=== PATIENT | female | born 1955 | race Two or more races ===

== ENCOUNTER 2020-05-19 09:55 | Inpatient (IN) | payer MEDICAID, MEDICARE ==
[~2020-05-19] VITALS: Ht 160 cm; Wt 78.6 kg
[2020-05-19] MEDS ORDERED: cloNIDine HCL 0.1 MG TAB PO ONE (10:30)
[2020-05-19] MEDS ORDERED: HYDROmorphone HCL 2 MG/ML VL IV ONE (12:45)
[2020-05-19] MEDS ORDERED: METOCLOPRAMIDE HCL 5MG/ml INJ 2ml VIAL IV ONE (12:45)
[2020-05-19] MEDS ORDERED: SODIUM CHLORIDE 0.9% 1,000 ML IV ONE (12:45)
[2020-05-19] MEDS ORDERED: MORPHINE SULF INJ 2 MG/ML SYRINGE 1ML IV PRN (13:30)
[2020-05-19] MEDS ORDERED: hydrALAZINE HCL 20 MG/ML VL IV PRN (13:30)
[2020-05-19] MEDS ORDERED: NITROGLYCERIN 0.4 MG SL TAB SL PRN (13:30)
[2020-05-19] MEDS ORDERED: LORazepam 2MG/ML-1ML VIAL IV ONE (13:30)
[2020-05-19 13:36] LABS: Basophils # (auto) 0 10 ^3/uL (0-0.2); Basophils % (auto) 0.3 % (0.0-2.0); Eosinophils # (auto) 0.1 10 ^3/uL (0-0.8); Eosinophils % (auto) 0.4 % (0.0-7.0); Hematocrit 43.1 % (36.0-46.0); Hemoglobin 14.8 g/dL (12.2-16.2); Lymphocytes # (auto) 1.7 10 ^3/uL (0.4-5.4); Lymphocytes % (auto) 13.3 % (10.0-50.0); Mean Corpuscular Hemoglobin 29.7 pg (28.0-32.0); Mean Corpuscular Hgb Conc. 34.2 g/dL (32.0-36.0); Monocytes # (auto) 0.5 10 ^3/uL (0-1.3); Monocytes % (auto) 4.2 % (0.0-12.0); Neutrophils # (auto) 10.6 10 ^3/uL (1.6-8.6); Neutrophils % (auto) 81.8 % (37.0-80.0); Nucleated Red Blood Cells % 0.1 %; Platelet Count (auto) 315 10^3/uL (140-450); Red Blood Cells 4.96 10^6/uL (4.0-5.20); Red Cell Distribution Width 13.2 % (11.8-14.3)
[2020-05-19 13:55] LABS: INR 1.03 (0.9-1.15); Partial Thromboplastin Time 24.4 sec (23.0-31.2)
[2020-05-19 14:00] LABS: Albumin 3.8 g/dL (3.4-5.0); Magnesium 2.1 mg/dL (1.6-2.6); Potassium 4.3 mmol/L (3.5-5.1)
[2020-05-19 14:03] LABS: BUN/Creatinine Ratio 11.4; Bilirubin, Total 0.5 mg/dL (0.2-1.0); Total Protein 7.5 g/dL (6.4-8.2)
--- NOTE | 2020-05-19 14:45 | NUR ---
Telemetry admit from ER UMAIR HOWARD admitted to Telemetry unit after SBAR received. Patient oriented to Estefany dunn RN, unit, room, bed, and unit policies regarding patient care and visiting hours. Patient now on continuous telemetry monitoring, tele box #71. Patient placed on bedside oxygen and weighed by bed scale. Instructed patient on POC, fall precautions, pressure injury prevention, and to call for assistance as needed. Patient verbalized understanding. Fall precautions in place with place with call light within reach.
--- NOTE | 2020-05-19 16:45 | NUR ---
Family called for an update Patient's daughter called. Password obtained. Update provided.
[2020-05-19] MEDS: MORPHINE SULF INJ 2 MG/ML SYRINGE 1ML IV PRN ×2 (16:50→22:01)
[2020-05-19] MEDS: ONDANSETRON HCL 4 MG/2 ML VIAL IV PRN ×2 (16:50→22:01)
--- NOTE | 2020-05-19 17:02 | NUR ---
Mary specimen collected and walked to lab by staff member per protocol.
[2020-05-19 17:18] VITALS: BP 157/87
--- NOTE | 2020-05-19 18:33 | NUR ---
Closing note Patient resting in bed with even and unlabored respirations on 0.5 LPM NC, no distress noted. Patients left knee is swollen with ecchymosis noted. Left pedal pulse present. Skin color WNL to LLE. Fall precautions in place with call light within reach.
[2020-05-19] MEDS ORDERED: DEXTROSE (50%) 50ML SYRG IV PRN (18:45)
--- NOTE | 2020-05-19 18:50 | NUR ---
Called lab to request COVID in-house swab
--- NOTE | 2020-05-19 19:13 | NUR ---
Care endorsed to JULIO Sanchez.
--- NOTE | 2020-05-19 19:42 | NUR ---
Opening Shift Note Received report and assumed care of patient. Patient is awake and alert. No signs or symptoms of distress noted. Instructed patient on plan of care and to call for assistance as needed. Will continue to monitor.
[2020-05-19 22:00] VITALS: BP 155/93
--- NOTE | 2020-05-19 22:01 | NUR ---
Pain Medication Administration Patient complaining of left knee pain 10/10. Will administer pain medication per MD order. Will reassess pain level and will continue to monitor.
[2020-05-19] MEDS ORDERED: AZITHROMYCIN 250 MG TAB PO ONE (22:15)
--- NOTE | 2020-05-19 22:15 | NUR ---
Paged Hospitalist Paged hospitalist regarding patient complaining of sore throat and losing voice. Received new orders for Rapid Strep test, COVID test, Zithromax 500mg PO ONCE, Zithromax 250mg qd x4 days and Cepastat lozenges q6hr PRN. Orders read back and verified. Made hospitalist aware of current COVID test ordered already, verbalized understanding. Will carry out and will continue to monitor.
--- NOTE | 2020-05-19 22:31 | NUR ---
Pain Level Reassessment Patient's left knee pain level reassessed to be 6/10. Repositioned patient for comfort. Offered patient nonpharmacological interventions, patient denied at this time.
[2020-05-19] MEDS: ACCU-CHEK COMFORT CURVE STRIP VI SCH (22:50)
[2020-05-19] MEDS: InsuLIN REG 1unit/0.01ml Soln (100units/ml) SC SCH (22:51)
[2020-05-19] MEDS ORDERED: THROAT LOZENGES(CEPASTAT) MT ONE (23:17)
[2020-05-19] MEDS: THROAT LOZENGES(CEPASTAT) MT PRN (23:26)
[2020-05-19 23:30] VITALS: BP 141/88
[2020-05-20 05:00] VITALS: BP 156/77
[2020-05-20] MEDS: InsuLIN REG 1unit/0.01ml Soln (100units/ml) SC SCH ×4 (06:34→22:37)
[2020-05-20] MEDS: ACCU-CHEK COMFORT CURVE STRIP VI SCH ×4 (06:35→22:37)
--- NOTE | 2020-05-20 08:00 | NUR ---
Morning note Patient resting in bed with even and unlabored respirations on room air, no distress noted. Instructed patient on POC, fall precautions and to call for assistance as needed. Fall precautions in place with call light within reach.
[2020-05-20] MEDS: ONDANSETRON HCL 4 MG/2 ML VIAL IV PRN ×2 (08:25→12:26)
[2020-05-20] MEDS: BENAZEPRIL HCL 10 MG TAB PO SCH (08:26)
[2020-05-20] MEDS: PANTOPRAZOLE 40 MG TAB PO SCH (08:26)
[2020-05-20] MEDS: MORPHINE SULF INJ 2 MG/ML SYRINGE 1ML IV PRN ×3 (08:26→22:37)
[2020-05-20] MEDS: AZITHROMYCIN 250 MG TAB PO SCH (08:26)
[2020-05-20] MEDS: THROAT LOZENGES(CEPASTAT) MT PRN ×3 (08:38→23:49)
[2020-05-20 09:00] VITALS: BP 163/88
--- NOTE | 2020-05-20 10:13 | NUR ---
Orthopedic Rodrigue Mackenzie was at bedside POC discussed with this RN. Mackenzie to place orders.
--- NOTE | 2020-05-20 12:10 | NUR ---
RE: headache Patient has c/o headache. Notified Dr. Ames. Order received and read back to verify.
[2020-05-20] MEDS: ACETAMINOPHEN 325 MG TAB PO PRN (12:25)
[2020-05-20 13:00] VITALS: BP 120/67
--- NOTE | 2020-05-20 13:55 | NUR ---
MD was at bedside - Dr. Ames This RN was at bedside. Notified MD of patient's status. MD verbalized understanding. Okay to place ice pack on the left knee per MD.
--- NOTE | 2020-05-20 13:57 | NUR ---
Ice pack placed to the left knee per MD order.
[2020-05-20] MEDS: ALPRAZolam 0.25 MG TAB PO PRN (15:39)
--- NOTE | 2020-05-20 15:44 | NUR ---
RE: "panic attack" per patient This RN notified that assistance was needed. Patient sitting at side of bed with RLE dangling. Patient is crying with increase respirations. Patient unable to speak in full complete sentences. Patient stated in broken fragments "I'm having panic attack." Instructed patient on deep breathing and relaxation technique. Patient able to return proper demonstration. Patient medicated with PRN anti-anxiety medication per MD order. Respirations even and unlabored with no distress noted after interaction. Call light within reach.
[2020-05-20 17:00] VITALS: BP 132/77
--- NOTE | 2020-05-20 17:02 | NUR ---
Patient resting in bed with even & unlabored respirations No distress noted. Call light within reach.
--- NOTE | 2020-05-20 17:49 | NUR ---
Consents signed and placed in hard chart per MD order. Patient is A&Ox4.
--- NOTE | 2020-05-20 18:29 | NUR ---
Closing note Patient awake & alert, resting in bed with even and unlabored respirations, no distress noted. Fall precautions in place with call light within reach; bed alarm on for safety.
--- NOTE | 2020-05-20 19:12 | NUR ---
Care endorsed to JULIO Sanchez.
[2020-05-20 21:00] VITALS: BP 158/84
--- NOTE | 2020-05-20 22:37 | NUR ---
Pain Medication Administration Patient complaining of left knee pain 03/19. Will administer pain medication per MD order. Will reassess pain level and will continue to monitor.
--- NOTE | 2020-05-20 23:07 | NUR ---
Pain Level Reassessment Patient's left knee pain level reassessed to be 6/10. Repositioned patient for comfort. Offered patient nonpharmacological interventions, patient denied at this time. Will continue to monitor.
[2020-05-20 23:46] LABS: Urine Bacteria NONE SEEN /hpf (None Seen); Urine Blood Negative /uL (Negative); Urine Specific Gravity 1.008 (1.001-1.035); Urine WBC 8 /hpf (0 - 5)
[2020-05-21] MEDS: ACETAMINOPHEN 325 MG TAB PO PRN (00:17)
--- NOTE | 2020-05-21 00:17 | NUR ---
Pain Medication Administration Patient complaining of headache pain level 9/10. Patient requesting Tylenol. Will administer pain medication per MD order. Will reassess pain level and will continue to monitor.
--- NOTE | 2020-05-21 01:17 | NUR ---
Pain Level Reassessment Patient asleep for pain level reassessment. Patient's pain level reassessed to be 0/10 using Flacc pain scale. No signs or symptoms of distress noted. Will continue to monitor.
[2020-05-21 05:00] VITALS: BP 147/88
[2020-05-21 06:10] LABS: Basophils # (auto) 0 10 ^3/uL (0-0.2); Basophils % (auto) 0.4 % (0.0-2.0); Eosinophils # (auto) 0.2 10 ^3/uL (0-0.8); Eosinophils % (auto) 2.3 % (0.0-7.0); Hematocrit 36.7 % (36.0-46.0); Hemoglobin 12.4 g/dL (12.2-16.2); Lymphocytes # (auto) 1.6 10 ^3/uL (0.4-5.4); Lymphocytes % (auto) 20.8 % (10.0-50.0); Mean Corpuscular Hemoglobin 29.9 pg (28.0-32.0); Mean Corpuscular Hgb Conc. 33.8 g/dL (32.0-36.0); Mean Corpuscular Volume 88.6 fL (80.0-100.0); Monocytes # (auto) 0.6 10 ^3/uL (0-1.3); Monocytes % (auto) 8.2 % (0.0-12.0); Neutrophils # (auto) 5.3 10 ^3/uL (1.6-8.6); Neutrophils % (auto) 68.3 % (37.0-80.0); Nucleated Red Blood Cells % 0.1 %; Platelet Count (auto) 259 10^3/uL (140-450); Red Blood Cells 4.14 10^6/uL (4.0-5.20); Red Cell Distribution Width 13.5 % (11.8-14.3); White Blood Cell 7.7 10^3/uL (4.4-10.8)
[2020-05-21 06:31] LABS: Potassium 4.4 mmol/L (3.5-5.1)
[2020-05-21] MEDS: ACCU-CHEK COMFORT CURVE STRIP VI SCH ×4 (06:44→21:32)
[2020-05-21] MEDS: InsuLIN REG 1unit/0.01ml Soln (100units/ml) SC SCH ×4 (06:45→21:46)
[2020-05-21 06:51] LABS: BUN/Creatinine Ratio 14.7; Calcium 8.8 mg/dL (8.5-10.1)
--- NOTE | 2020-05-21 07:30 | NUR ---
STATUS PT RESTING IN BED WITH EYES CLOSED. RESPIRATIONS EQUAL AND UNLABORED. NO S/S OF DISTRESS. TELE IN PLACE AND BEING MONITORED. BED IN LOW POSITION AND CALL LIGHT IN REACH. WILL CONTINUE TO MONITOR
[2020-05-21 09:00] VITALS: BP 142/88
[2020-05-21] MEDS: BENAZEPRIL HCL 10 MG TAB PO SCH (09:54)
[2020-05-21] MEDS: PANTOPRAZOLE 40 MG TAB PO SCH (09:54)
[2020-05-21] MEDS: AZITHROMYCIN 250 MG TAB PO SCH (09:54)
[2020-05-21 13:00] VITALS: BP 140/56
--- NOTE | 2020-05-21 13:11 | NUR ---
TAKEN TO PRE-OP VIA BED NEW IV PLACED TO RIGHT FA #20 RUNNING NS TO GRAVITY. PT WEARING ONLY GOWN, WITH ONE REMAINING RING TAPED.
[2020-05-21] MEDS: BUPIVACAINE 0.25% INJ 50ML VIAL ONE ×2 (14:51→16:25)
[2020-05-21] MEDS ORDERED: ceFAZolin 1GM/50ML 0 ML IV ONE (14:53)
[2020-05-21] MEDS ORDERED: ceFAZolin 1GM/50ML 100 ML IV ONE (14:55)
[2020-05-21] MEDS ORDERED: MIDAZOLAM HCL 1MG/1ML-2 ML VIAL ONE (15:33)
[2020-05-21] MEDS ORDERED: fentaNYL CITRATE 100 MCG/2 ML VL ONE (15:33)
[2020-05-21] MEDS ORDERED: MEPERIDINE HCL (25 MG/ML) 1ML VIAL ONE (15:34)
[2020-05-21] MEDS ORDERED: KETOROLAC TROMETH 30 MG/ML 1ML VIAL IV ONE (15:45)
[2020-05-21] MEDS ORDERED: ePHEDrine SULFATE 50 MG/ML AMP IV PRN (15:45)
[2020-05-21] MEDS ORDERED: MIDAZOLAM HCL 1MG/1ML-2 ML VIAL IV PRN (15:45)
[2020-05-21] MEDS ORDERED: ACCU-CHEK COMFORT CURVE STRIP VI ONE (15:45)
[2020-05-21] MEDS ORDERED: ONDANSETRON HCL 4 MG/2 ML VIAL IV PRN (15:45)
[2020-05-21] MEDS ORDERED: DexAMETHasone SOD PHOS 10MG/1ML VIAL INJ ONE (15:52)
[2020-05-21] MEDS ORDERED: PROPOFOL 10 MG/ML 20 ML IV ONE (15:52)
[2020-05-21] MEDS ORDERED: MORPHINE SULF INJ 2 MG/ML SYRINGE 1ML IV PRN (16:00)
[2020-05-21] MEDS: VANCOMYCIN HCL 1000 MG VL ONE ×2 (16:25→16:50)
[2020-05-21] MEDS ORDERED: ceFAZolin 1GM/50ML 50 ML IV SCH (16:45)
[2020-05-21] MEDS: LACTATED RINGER'S 1,000 ML IV SCH (16:59)
[2020-05-21] MEDS: HYDROmorphone HCL 2 MG/ML VL IV PRN ×3 (17:08→17:33)
[2020-05-21] MEDS: LABETALOL HCL 5 MG/ML 4ML SYRINGE IV PRN ×2 (17:27→17:50)
--- NOTE | 2020-05-21 17:55 | NUR ---
PATIENT REMAINS OFF THE FLOOR IN OR
--- NOTE | 2020-05-21 18:01 | NUR ---
REPORT CALLED FROM RECOVERY ROOM L TOTAL ORIF OF THE [place] DRESSING CDI, KNEE IMMOBILIZER IN PLACE WEIGHT BEARING TOLERATED SCD ON NON OPERATIVE LEG IS AT BEDSIDE VITALS: TEMP 99.0 SAT 98% ON 2.5L NC HR 82 SR RR 12, PT TENDS TO HOLD HER BREATH AT TIMES BP 166/73 BLOOD SUGAR 191 NO COVERAGE, NPO LR @100 UNTIL PO TOLERATED TOTAL OF 2.5MG IV DILAUDID GIVEN PT WILL BE TRANSPORTED BACK TO ROOM 289A SHORTLY
--- NOTE | 2020-05-21 18:17 | NUR ---
RETURNED TO BED FROM OR VIA BED
--- NOTE | 2020-05-21 19:35 | NUR ---
Opening Shift Note Assumed patient care from Letty KIM. Patient is AOx4 and no s/s of distress. Patient is post-op and has pain in right leg. Patient said, " I will wait a while for pain medications." Patient educated that pain medication may be given if needed. Patient made aware to use call light for assistance and regarding medications for pain. Patient is on pulse oximeter ant saturation is at 95% on room air. Pedal pulse on left side is detected. Left site is dry and brace is noted. Will continue to monitor.
[2020-05-21] MEDS: ceFAZolin 1GM/50ML 50 ML IV SCH (21:32)
[2020-05-21] MEDS: MORPHINE SULF INJ 2 MG/ML SYRINGE 1ML IV PRN (21:53)
[2020-05-21 22:00] VITALS: BP 148/107
[2020-05-22] MEDS: ALPRAZolam 0.25 MG TAB PO PRN ×2 (00:01→19:31)
[2020-05-22] MEDS: LACTATED RINGER'S 1,000 ML IV SCH (02:45)
[2020-05-22] MEDS: MORPHINE SULF INJ 2 MG/ML SYRINGE 1ML IV PRN ×3 (03:12→21:45)
[2020-05-22] MEDS: ceFAZolin 1GM/50ML 50 ML IV SCH ×2 (03:12→09:43)
[2020-05-22 06:12] VITALS: BP 140/75
[2020-05-22 06:33] LABS: Basophils # (auto) 0 10 ^3/uL (0-0.2); Eosinophils # (auto) 0 10 ^3/uL (0-0.8); Hematocrit 36.5 % (36.0-46.0); Hemoglobin 12.1 g/dL (12.2-16.2); Lymphocytes # (auto) 0.8 10 ^3/uL (0.4-5.4); Lymphocytes % (auto) 6.6 % (10.0-50.0); Mean Corpuscular Hemoglobin 29.4 pg (28.0-32.0); Mean Corpuscular Hgb Conc. 33.2 g/dL (32.0-36.0); Mean Corpuscular Volume 88.5 fL (80.0-100.0); Monocytes # (auto) 0.3 10 ^3/uL (0-1.3); Neutrophils # (auto) 10.3 10 ^3/uL (1.6-8.6); Neutrophils % (auto) 90.4 % (37.0-80.0); Platelet Count (auto) 272 10^3/uL (140-450); Red Blood Cells 4.12 10^6/uL (4.0-5.20); Red Cell Distribution Width 13.3 % (11.8-14.3); White Blood Cell 11.4 10^3/uL (4.4-10.8)
[2020-05-22 06:37] LABS: Potassium 4.6 mmol/L (3.5-5.1)
[2020-05-22 06:43] LABS: BUN/Creatinine Ratio 13.8; Calcium 8.7 mg/dL (8.5-10.1)
[2020-05-22] MEDS: ACCU-CHEK COMFORT CURVE STRIP VI SCH ×4 (07:03→21:46)
[2020-05-22] MEDS: InsuLIN REG 1unit/0.01ml Soln (100units/ml) SC SCH ×4 (07:04→21:45)
[2020-05-22] MEDS: ONDANSETRON HCL 4 MG/2 ML VIAL IV PRN (07:57)
[2020-05-22] MEDS: ENOXAPARIN SOD 40 MG/0.4 ML SYRINGE SC SCH (07:58)
[2020-05-22] MEDS: BENAZEPRIL HCL 10 MG TAB PO SCH (07:58)
[2020-05-22] MEDS: PANTOPRAZOLE 40 MG TAB PO SCH (07:58)
[2020-05-22] MEDS: cloNIDine HCL 0.1 MG TAB PO PRN (07:59)
[2020-05-22 09:00] VITALS: BP 189/96
[2020-05-22 09:15] VITALS: BP 117/64
[2020-05-22] MEDS: AZITHROMYCIN 250 MG TAB PO SCH (10:00)
--- NOTE | 2020-05-22 10:45 | NUR ---
Pt has orders for WBAT but ortho note from this morning states that patient is NWB. Spoke with RN for clarification orders. Pt will be treated as NWB until further clarification.
[2020-05-22 13:00] VITALS: BP 151/57
--- NOTE | 2020-05-22 14:20 | NUR ---
Nutrition Assessment Note please see attached link for complete assessment [employer] needs ABW 66 [id number] kcals (23-25 kcal/kgBW), Est Protein needs: 66-72 gms/day (1.0-1.1 gm/kgABW). Will continue to monitor and reassess prn. Addendum: 05/22/20 at [address] Amended: Links added. Addendum: 05/23/20 at [address] Nutrition consult: Roland nicole for diabetic diet. pt verbalized understanding.
[2020-05-22] MEDS ORDERED: INSULIN LANTUS (GLARGINE) 1 /0.01ml (100units/ml) SC ONE (15:30)
[2020-05-22 16:19] VITALS: BP 136/85
--- NOTE | 2020-05-22 16:26 | NUR ---
assessment Patient is a 65 year old female who is alert and oriented. Prior to admission patient lived home with family and functioned independently. Patient informed me she is able to care for her own ADLs. Per patient she will return home to her prior living arrangements post discharge and family will transport her home. Patient informed me she was at home and slipped causing her to fall on her knee. Patient may benefit from home health PT and a fww on discharge. Patient informed me she will have help at home once discharged. Patient has no safety issues regarding returning home on discharge. I informed patient she has a right to speak to a social insurance analyst regarding all care. I informed patient she has a right to participate in any and all discharge planning. Patient does not have a POA and advanced directive. I have offered patient information on POA and advanced directives. I informed the patient the advantages and benefits of having an Advanced Directive. Patient verbalized understanding and agreed to discharge plan. Addendum: 05/22/20 at 1632 by Esha FITZGERALD Amended: Links added.
--- NOTE | 2020-05-22 19:30 | NUR ---
OPENING NOTE Received report from day shift RN. Patient is A&O X's 4 with no s/s of distress and reports some pain to left leg but does not want any pain medication at this time. Patient reports wanting some medication for anxiety because she feels like she is having a panic attack. Will medicate as ordered. Educated patient on POC/to use call light when in need of assistance and NWB to left leg. Patient verbalized understanding. Patient has knee brace to left leg and SCD applied to right leg. Circulation to bilateral feet adequate. Bed is in lowest/locked position with side rails up X's 2 and call light is within reach of patient. Will continue care.
--- NOTE | 2020-05-22 19:30 | NUR ---
IV insertion IV access obtained, via clean sterile technique by inserting 22 gauge catheter at LEFT AC after ONE ATTEMPT. IV secured properly. No trauma to site. Patient tolerated well.
[2020-05-22 22:00] VITALS: BP 152/89
--- NOTE | 2020-05-23 00:59 | NUR ---
ROUNDS Patient resting in bed with no s/s of discomfort. continuous pulse ox on and saturation is 97% on 2L N.C. Will continue care.
[2020-05-23] MEDS: MORPHINE SULF INJ 2 MG/ML SYRINGE 1ML IV PRN ×4 (03:03→19:58)
[2020-05-23] MEDS: ACETAMINOPHEN 325 MG TAB PO PRN ×2 (03:48→21:35)
--- NOTE | 2020-05-23 03:51 | NUR ---
PAIN Patient still c/o pain to left knee and now a headache. patient rates it about a 6-7. Administered Tylenol. Will continue care.
[2020-05-23 05:00] VITALS: BP 153/75
[2020-05-23 05:48] LABS: Basophils # (auto) 0 10 ^3/uL (0-0.2); Basophils % (auto) 0.2 % (0.0-2.0); Eosinophils # (auto) 0.1 10 ^3/uL (0-0.8); Eosinophils % (auto) 0.9 % (0.0-7.0); Hematocrit 33.7 % (36.0-46.0); Hemoglobin 11.5 g/dL (12.2-16.2); Lymphocytes # (auto) 1.4 10 ^3/uL (0.4-5.4); Lymphocytes % (auto) 16.5 % (10.0-50.0); Mean Corpuscular Hemoglobin 30.1 pg (28.0-32.0); Mean Corpuscular Hgb Conc. 34.3 g/dL (32.0-36.0); Mean Corpuscular Volume 87.8 fL (80.0-100.0); Monocytes # (auto) 0.7 10 ^3/uL (0-1.3); Neutrophils # (auto) 6.1 10 ^3/uL (1.6-8.6); Neutrophils % (auto) 74.4 % (37.0-80.0); Platelet Count (auto) 245 10^3/uL (140-450); Red Blood Cells 3.84 10^6/uL (4.0-5.20); Red Cell Distribution Width 13.1 % (11.8-14.3); White Blood Cell 8.2 10^3/uL (4.4-10.8)
[2020-05-23 06:14] LABS: Potassium 3.8 mmol/L (3.5-5.1)
[2020-05-23 06:20] LABS: BUN/Creatinine Ratio 20.7; Calcium 8.4 mg/dL (8.5-10.1)
[2020-05-23] MEDS: InsuLIN REG 1unit/0.01ml Soln (100units/ml) SC SCH ×4 (06:26→22:00)
[2020-05-23] MEDS: ACCU-CHEK COMFORT CURVE STRIP VI SCH ×4 (06:37→22:00)
[2020-05-23] MEDS ORDERED: INSULIN LANTUS (GLARGINE) 1 /0.01ml (100units/ml) SC SCH (07:00)
[2020-05-23 09:00] VITALS: BP 148/69
[2020-05-23] MEDS: ONDANSETRON HCL 4 MG/2 ML VIAL IV PRN ×2 (09:52→15:11)
[2020-05-23] MEDS: PANTOPRAZOLE 40 MG TAB PO SCH (09:56)
[2020-05-23] MEDS: ENOXAPARIN SOD 40 MG/0.4 ML SYRINGE SC SCH (09:56)
[2020-05-23] MEDS: BENAZEPRIL HCL 10 MG TAB PO SCH (09:56)
[2020-05-23] MEDS: AZITHROMYCIN 250 MG TAB PO SCH (09:56)
[2020-05-23 13:00] VITALS: BP 144/85
--- NOTE | 2020-05-23 15:12 | NUR ---
Patient ambulated to restroom with FWW and states she hurt knee. Requesting morphine at this time. Patient medicated as ordered. Cont care
--- NOTE | 2020-05-23 15:24 | NUR ---
re-assessment Per consult HH safety eval, VS, PT, Fww. Patient has been provided with a list of medicare providers. Per patient she has no preference on who provides service. MD order has been sent to [facility]. Per Camryn at [facility] service will start on 05/25/2020. Patient has been notified. Addendum: 05/23/20 at 1526 by Esha Lora Amended: Links added.
--- NOTE | 2020-05-23 15:48 | NUR ---
re-assessment Per consult fww. MD order has been sent to [facility]. Per Tana at [facility] fww will be delivered to patient between 4pm and 5pm today. Patient has been notified. Addendum: 05/23/20 at 1550 by Esha Lora Amended: Links added.
--- NOTE | 2020-05-23 16:02 | NUR ---
Patient placed on room air and noted to dest into 86%, o2 noted fluctuating back and forth between 85% - 91% Patient encouraged to turn cough and deep breath and IS at bedside pt educated on use she returned demonstration. Patient placed back on 2L n/c once patient noted maintaining <88% patient noted back to 96%. No acute distress noted pt denies sob. Cont to monitor
[2020-05-23 17:00] VITALS: BP 153/86
--- NOTE | 2020-05-23 19:00 | NUR ---
Patient care endorsed endorsed care to Mohit strong. Patient sitting up comfortably in bed no acute distress or sob. FWW delivered to bedside and pt to be dc home with it upon discharge. Fall precs in place per protocol, bed alarm on at all times. Patient on 2l n/c 98% at this time no sob. Call light within reach.
--- NOTE | 2020-05-23 19:09 | NUR ---
CONTINUOUS POX MONITOR AT BEDSIDE. PT IS WEARING A 2L NC. SPO2 98%, HR 95. PT DENIES ANY RESPIRATORY DISTRESS. NO SHORTNESS OF BREATH NOTED.
--- NOTE | 2020-05-23 19:40 | NUR ---
Opening Shift Note Assumed care of patient, awake and alert. No S/S of distress/SOB. Patient c/o left knee pain that she rates as 9/10. Patient is requesting pain medication. Will treat with PRN morphine 2 mg. Bed is locked in lowest position with call light within reach. Instructed on POC and to call for assist PRN, will continue to monitor for changes Q1hr and PRN.
--- NOTE | 2020-05-23 20:08 | NUR ---
Patient's blood pressure is elevated at 168/89. Will treat with PRN clonidine and will reevaluate blood pressure.
[2020-05-23 22:00] VITALS: BP 159/81
[2020-05-23] MEDS: INSULIN LANTUS (GLARGINE) 1 /0.01ml (100units/ml) SC SCH (22:00)
[2020-05-23] MEDS: cloNIDine HCL 0.1 MG TAB PO PRN (22:11)
--- NOTE | 2020-05-23 23:40 | NUR ---
BLOOD PRESSURE REEVALUATION Patient's blood pressure has decreased to 133/75. Will continue to monitor the patient's status.
[2020-05-24] MEDS: MORPHINE SULF INJ 2 MG/ML SYRINGE 1ML IV PRN ×2 (00:55→09:26)
--- NOTE | 2020-05-24 01:20 | NUR ---
PATIENT REPORTS FEELING ANXIOUS AND IS REQUESTING MEDICATION. WILL TREAT WITH PRN XANAX 0.25 MG.
[2020-05-24] MEDS: ALPRAZolam 0.25 MG TAB PO PRN (01:27)
[2020-05-24 05:00] VITALS: BP 149/74
[2020-05-24] MEDS: InsuLIN REG 1unit/0.01ml Soln (100units/ml) SC SCH ×2 (06:10→12:40)
[2020-05-24] MEDS: INSULIN LANTUS (GLARGINE) 1 /0.01ml (100units/ml) SC SCH (06:17)
[2020-05-24] MEDS: ACCU-CHEK COMFORT CURVE STRIP VI SCH ×2 (06:19→11:30)
--- NOTE | 2020-05-24 06:44 | NUR ---
PATIENT SPO2 DECREASES TO 85% ON RA. PLACED THE PATIENT BACK ON 2L NC.
[2020-05-24 07:03] LABS: Basophils # (auto) 0 10 ^3/uL (0-0.2); Basophils % (auto) 0.4 % (0.0-2.0); Eosinophils # (auto) 0.1 10 ^3/uL (0-0.8); Eosinophils % (auto) 2.6 % (0.0-7.0); Hematocrit 33.3 % (36.0-46.0); Hemoglobin 11.5 g/dL (12.2-16.2); Lymphocytes # (auto) 1.3 10 ^3/uL (0.4-5.4); Lymphocytes % (auto) 23.3 % (10.0-50.0); Mean Corpuscular Hemoglobin 30.5 pg (28.0-32.0); Mean Corpuscular Hgb Conc. 34.6 g/dL (32.0-36.0); Mean Corpuscular Volume 88.2 fL (80.0-100.0); Monocytes # (auto) 0.6 10 ^3/uL (0-1.3); Monocytes % (auto) 11.6 % (0.0-12.0); Neutrophils # (auto) 3.4 10 ^3/uL (1.6-8.6); Neutrophils % (auto) 62.1 % (37.0-80.0); Nucleated Red Blood Cells % 0.1 %; Platelet Count (auto) 252 10^3/uL (140-450); Red Blood Cells 3.77 10^6/uL (4.0-5.20); Red Cell Distribution Width 13.1 % (11.8-14.3); White Blood Cell 5.4 10^3/uL (4.4-10.8)
[2020-05-24 07:04] LABS: Calcium 8.5 mg/dL (8.5-10.1); Potassium 3.9 mmol/L (3.5-5.1)
[2020-05-24 07:07] LABS: BUN/Creatinine Ratio 18.2
[2020-05-24 09:00] VITALS: BP 140/65
[2020-05-24] MEDS: AZITHROMYCIN 250 MG TAB PO SCH (09:24)
[2020-05-24] MEDS: ENOXAPARIN SOD 40 MG/0.4 ML SYRINGE SC SCH (09:24)
[2020-05-24] MEDS: BENAZEPRIL HCL 10 MG TAB PO SCH (09:25)
[2020-05-24] MEDS: PANTOPRAZOLE 40 MG TAB PO SCH (09:25)
[2020-05-24] MEDS ORDERED: METF-929 PO (11:26)
[2020-05-24 13:00] VITALS: BP 138/76
[2020-05-24 14:50] VITALS: BP 138/76
--- NOTE | 2020-05-24 16:57 | NUR ---
Discharge instructions given as ordered. Encourage to follow up with PMD as instructed. All questions and concerns addressed. Patient verbalized understanding. Medication reconciliation form completed and copy given to patient. IV removed with catheter intact, pressure dressing applied. Telemetry unit returned to ICU. Patient taken to vehicle via wheelchair with all personal belongings, accompanied by staff. No distress noted at time of departure. Patients' O2 Sat since 1200 was anywhere above 88%. MD Burnett aware and per MD, patient is cleared to be discharged.
[2020-05-24 17:00] VITALS: BP 136/83
== END 2020-05-24 16:57 | disposition home health service (06) | DRG 488 ==
LOC: ER 09:55 → EDUNIT# 09:55 → EDBD 09:55 → TELE 09:56 → TELE-WESTW 15:41
PROVIDERS: ADMIT Nurse Practitioner Acute Care; ATTEND Internal Medicine Pulmonary Disease
PROC: 0LQR0ZZ Repair Left Knee Tendon, Open Approach (ICD-10-PCS; principal; 2020-05-22)
PROC: 0SQD0ZZ Repair Left Knee Joint, Open Approach (ICD-10-PCS; 2020-05-22)
PROC: BW1C1ZZ Fluoroscopy of Lower Extremity using Low Osmolar Contrast (ICD-10-PCS; 2020-05-22)
DX: S82.042A Displaced comminuted fracture of left patella, initial encounter for closed fracture (principal); E87.1 Hypo-osmolality and hyponatremia; I10 Essential (primary) hypertension; E11.21 Type 2 diabetes mellitus with diabetic nephropathy; J02.0 Streptococcal pharyngitis; E66.9 Obesity, unspecified; Z20.828 Contact with and (suspected) exposure to other viral communicable diseases; E11.65 Type 2 diabetes mellitus with hyperglycemia; M76.52 Patellar tendinitis, left knee; W18.39XA Other fall on same level, initial encounter; Y93.89 Activity, other specified; Z91.81 History of falling; Z90.710 Acquired absence of both cervix and uterus; Y92.098 Other place in other non-institutional residence as the place of occurrence of the external cause; Y99.8 Other external cause status; Z68.31 Body mass index [BMI] 31.0-31.9, adult
CPT/HCPCS: 36415; 71045; 73560; 73562; 76000; 80048; 80053; 81001; 82962; 83036; 83735; 84443; 85025; 85610; 85730; 86850; 86900; 86901; 87426; 87880; 93005; 93306; 94762; 96361; 96374; 96375; 97116; 97163; 97530; G0378; J0690; J1100; J1815; J2250; J2405; J2704; J3490

== ENCOUNTER 2020-06-08 00:35 | Emergency (ER) | payer MEDICARE ==
[~2020-06-08] VITALS: Ht 160 cm; Wt 77.1 kg
[~2020-06-08 00:35] MED LIST: METF-929 PO
[2020-06-08] MEDS ORDERED: cloNIDine HCL 0.1 MG TAB PO ONE (01:00)
[2020-06-08 01:43] LABS: Basophils # (auto) 0 10 ^3/uL (0-0.2); Basophils % (auto) 0.4 % (0.0-2.0); Eosinophils # (auto) 0.1 10 ^3/uL (0-0.8); Hematocrit 40.2 % (36.0-46.0); Hemoglobin 13.5 g/dL (12.2-16.2); Lymphocytes # (auto) 1.3 10 ^3/uL (0.4-5.4); Lymphocytes % (auto) 21.3 % (10.0-50.0); Mean Corpuscular Hemoglobin 29.5 pg (28.0-32.0); Mean Corpuscular Hgb Conc. 33.7 g/dL (32.0-36.0); Mean Corpuscular Volume 87.6 fL (80.0-100.0); Monocytes # (auto) 0.4 10 ^3/uL (0-1.3); Monocytes % (auto) 6.6 % (0.0-12.0); Neutrophils # (auto) 4.4 10 ^3/uL (1.6-8.6); Neutrophils % (auto) 69.7 % (37.0-80.0); Nucleated Red Blood Cells % 0.1 %; Platelet Count (auto) 322 10^3/uL (140-450); Red Blood Cells 4.59 10^6/uL (4.0-5.20); Red Cell Distribution Width 13.6 % (11.8-14.3); White Blood Cell 6.3 10^3/uL (4.4-10.8)
[2020-06-08] MEDS ORDERED: InsuLIN REG 1unit/0.01ml Soln (100units/ml) IV ONE (01:45)
[2020-06-08 01:59] LABS: Alanine Aminotransferase 36 U/L (13-56); Albumin 3.5 g/dL (3.4-5.0); Anion Gap 8 (5-15); Aspartate Aminotransferase 20 U/L (15-37); BUN/Creatinine Ratio 17.3; Blood Urea Nitrogen 17 mg/dL (7-18); Calcium 8.7 mg/dL (8.5-10.1); Carbon Dioxide 23 mmol/L (21-32); Chloride 106 mmol/L (98-107); GFR African American 73 mL/min; GFR Non-African American 60 mL/min; Glucose 287 mg/dL (74-106); Potassium 3.8 mmol/L (3.5-5.1); Sodium 137 mmol/L (136-145)
[2020-06-08 02:03] LABS: Alkaline Phosphatase 122 U/L (45-117); Bilirubin, Total 0.4 mg/dL (0.2-1.0); Total Protein 7.5 g/dL (6.4-8.2)
[2020-06-08 02:29] LABS: Urine Bacteria FEW /hpf (None Seen); Urine Blood Negative /uL (Negative); Urine Mucus FEW (None Seen); Urine WBC 1 /hpf (0 - 5)
[2020-06-08] MEDS ORDERED: ONDANSETRON HCL 4 MG/2 ML VIAL IV ONE (02:30)
[2020-06-08] MEDS ORDERED: MORPHINE SULFATE 4 MG/ML SYR/VIAL IV ONE (02:30)
[2020-06-08 03:00] VITALS: BP 110/44
== END 2020-06-08 03:41 | disposition home or self-care (01) ==
LOC: ER 00:35
DX: I10 Essential (primary) hypertension (principal); E11.65 Type 2 diabetes mellitus with hyperglycemia; R51.9 Headache, unspecified; Z79.899 Other long term (current) drug therapy; Z98.890 Other specified postprocedural states
CPT/HCPCS: 36415; 80053; 81001; 82962; 84484; 85025; 96374; 96375; 99284; J1815; J2270; J2405

== ENCOUNTER 2021-12-31 12:03 | Inpatient (IN) | payer OTHER, MEDICAID ==
[~2021-12-31] VITALS: Ht 160 cm; Wt 71.2 kg
[2021-12-31] MEDS: SODIUM CHLORIDE 0.9% 1,000 ML IV SCH
[2021-12-31] MEDS ORDERED: SODIUM CHLORIDE 0.9% 1,000 ML IV ONE ×2 (12:30)
[2021-12-31] MEDS ORDERED: InsuLIN REG 1unit/0.01ml Soln (100units/ml) IV ONE (12:30)
[2021-12-31 12:43] LABS: Basophils # (auto) 0.1 10 ^3/uL (0-0.2); Basophils % (auto) 1.1 % (0.0-2.0); Eosinophils # (auto) 0 10 ^3/uL (0-0.8); Eosinophils % (auto) 0.1 % (0.0-7.0); Hematocrit 42.2 % (36.0-46.0); Hemoglobin 14.6 g/dL (12.2-16.2); Lymphocytes # (auto) 0.1 10 ^3/uL (0.4-5.4); Lymphocytes % (auto) 2.3 % (10.0-50.0); Mean Corpuscular Hemoglobin 29.1 pg (28.0-32.0); Mean Corpuscular Hgb Conc. 34.6 g/dL (32.0-36.0); Mean Corpuscular Volume 83.9 fL (80.0-100.0); Monocytes # (auto) 0.2 10 ^3/uL (0-1.3); Monocytes % (auto) 2.5 % (0.0-12.0); Nucleated Red Blood Cells % 0.1 %; Red Blood Cells 5.03 10^6/uL (4.0-5.20); Red Cell Distribution Width 14.1 % (11.8-14.3); White Blood Cell 6.4 10^3/uL (4.4-10.8)
[2021-12-31 13:21] LABS: Albumin 3.1 g/dL (3.4-5.0); BUN/Creatinine Ratio 25.6; Calcium 8.5 mg/dL (8.5-10.1)
[2021-12-31 13:24] LABS: Bilirubin, Total 0.8 mg/dL (0.2-1.0)
[2021-12-31 14:55] LABS: Urine Bacteria NONE SEEN /hpf (None Seen); Urine Blood Negative /uL (Negative); Urine Specific Gravity 1.025 (1.001-1.035); Urine WBC 1 /hpf (0 - 5)
[2021-12-31] MEDS ORDERED: ACETAMINOPHEN 325 MG TAB PO ONE (15:00)
[2021-12-31] MEDS ORDERED: DEXTROSE (50%) 50ML SYRG IV PRN (15:45)
[2021-12-31] MEDS ORDERED: NITROGLYCERIN 0.4 MG SL TAB SL PRN (15:45)
[2021-12-31] MEDS ORDERED: MORPHINE SULFATE INJ 2 MG/ml SYRG IV PRN ×2 (15:45→23:00)
[2021-12-31] MEDS ORDERED: SODIUM CHLORIDE 0.9% 2,000 ML IV ONE (16:30)
[2021-12-31] MEDS ORDERED: ACETAMINOPHEN 325 MG TAB PO PRN ×2 (16:30→23:00)
[2021-12-31] MEDS ORDERED: cefTRIAXone 1GM/50ML D5W 50 ML IV ONE (16:30)
[2021-12-31] MEDS ORDERED: AZITHROMYCIN 500MG/ 250ML 250 ML IV ONE (16:30)
[2021-12-31] MEDS: ACCU-CHEK COMFORT CURVE STRIP VI SCH (17:32)
[2021-12-31] MEDS: InsuLIN REG 1unit/0.01ml Soln (100units/ml) SC SCH (17:33)
[2021-12-31] MEDS ORDERED: PANTOPRAZOLE 40 MG/10 ML VIAL INJ IV ONE (23:00)
[2021-12-31] MEDS ORDERED: DOCUSATE SOD 100 MG CAP PO PRN (23:00)
[2021-12-31] MEDS ORDERED: METOCLOPRAMIDE HCL 5MG/ml INJ 2ml VIAL IV PRN (23:00)
[2021-12-31] MEDS: LORazepam 0.5 MG TAB PO PRN (23:55)
[2022-01-01] VITALS (8 sets, daily range): BP systolic 108–125; BP diastolic 58–62
[2022-01-01 01:24] LABS: Phosphorus 1.9 mg/dL (2.5-4.90)
[2022-01-01 02:59] LABS: INR 1.1 (0.9-1.15); Partial Thromboplastin Time 25.6 sec (23.6-33.0)
[2022-01-01] MEDS: ACCU-CHEK COMFORT CURVE STRIP VI SCH ×4 (05:33→18:19)
[2022-01-01] MEDS: InsuLIN REG 1unit/0.01ml Soln (100units/ml) SC SCH ×4 (05:40→18:23)
[2022-01-01 06:46] LABS: Basophils # (auto) 0 10 ^3/uL (0-0.2); Basophils % (auto) 0.4 % (0.0-2.0); Eosinophils # (auto) 0.1 10 ^3/uL (0-0.8); Eosinophils % (auto) 1.6 % (0.0-7.0); Hematocrit 37.9 % (36.0-46.0); Hemoglobin 13.1 g/dL (12.2-16.2); Lymphocytes # (auto) 0.4 10 ^3/uL (0.4-5.4); Lymphocytes % (auto) 12.3 % (10.0-50.0); Mean Corpuscular Hemoglobin 29.1 pg (28.0-32.0); Mean Corpuscular Hgb Conc. 34.6 g/dL (32.0-36.0); Monocytes # (auto) 0.3 10 ^3/uL (0-1.3); Monocytes % (auto) 8.8 % (0.0-12.0); Neutrophils # (auto) 2.7 10 ^3/uL (1.6-8.6); Neutrophils % (auto) 76.9 % (37.0-80.0); Nucleated Red Blood Cells % 0.1 %; Red Blood Cells 4.51 10^6/uL (4.0-5.20); Red Cell Distribution Width 13.9 % (11.8-14.3); White Blood Cell 3.5 10^3/uL (4.4-10.8)
[2022-01-01 07:20] LABS: Albumin 2.6 g/dL (3.4-5.0); Magnesium 2.2 mg/dL (1.6-2.6); Potassium 3.5 mmol/L (3.5-5.1); Uric Acid 6.1 mg/dL (2.6-6.0)
[2022-01-01 07:22] LABS: INR 1.1 (0.9-1.15); Partial Thromboplastin Time 25.6 sec (23.6-33.0)
[2022-01-01 07:31] LABS: BUN/Creatinine Ratio 18.8; Bilirubin, Total 0.4 mg/dL (0.2-1.0); CRP High Sensitivity 11.2 mg/dL (< 0.3); Calcium 7.8 mg/dL (8.5-10.1); Phosphorus 1.9 mg/dL (2.5-4.90)
[2022-01-01] MEDS: ASPirin 81 mg TAB PO SCH (09:54)
[2022-01-01] MEDS: ENOXAPARIN SOD 40 MG/0.4 ML SYRINGE SC SCH (09:54)
[2022-01-01] MEDS: cefTRIAXone 1GM/50ML D5W 50 ML IV SCH (09:55)
[2022-01-01] MEDS ORDERED: POTASSIUM PHOSPHATE 22 MEQ in SODIUM CHL 0.9% 100 ML IV ONE (10:00)
[2022-01-01] MEDS ORDERED: PANTOPRAZOLE 40 MG/10 ML VIAL INJ IV SCH (10:00)
[2022-01-01] MEDS: ALLOPURINOL 100 MG TAB PO SCH (10:00)
[2022-01-01] MEDS: AZITHROMYCIN 500MG/ 250ML 250 ML IV SCH (11:41)
[2022-01-01] MEDS: NEUTRA-PHOS TABLET PO SCH ×2 (12:00→18:00)
[2022-01-01] MEDS: SODIUM CHLORIDE 0.9% 1,000 ML IV SCH ×2 (15:40)
[2022-01-01] MEDS ORDERED: FUROSEMIDE 20 MG/2 ML VIAL IV ONE (17:45)
[2022-01-01] MEDS: IPRATROPIUM BROM 0.5 MG/2.5ML INH SOL NEB SCH ×2 (18:32→21:49)
[2022-01-01] MEDS: ALBUTEROL SULF 2.5 MG/0.5ML(0.5%) NEB SOLN NEB SCH ×2 (18:32→21:49)
[2022-01-01] MEDS: ATORVASTATIN 20 MG TAB PO SCH (21:50)
[2022-01-01] MEDS: LORazepam 0.5 MG TAB PO PRN (22:54)
[2022-01-02] MEDS: InsuLIN REG 1unit/0.01ml Soln (100units/ml) SC SCH ×4 (00:12→19:06)
[2022-01-02] MEDS: ACCU-CHEK COMFORT CURVE STRIP VI SCH ×4 (00:13→18:57)
[2022-01-02] MEDS: ALBUTEROL SULF 2.5 MG/0.5ML(0.5%) NEB SOLN NEB SCH ×4 (02:54→22:28)
[2022-01-02] MEDS: IPRATROPIUM BROM 0.5 MG/2.5ML INH SOL NEB SCH ×4 (02:55→22:28)
[2022-01-02 05:00] VITALS: BP 119/71
[2022-01-02 07:41] LABS: Albumin 2.5 g/dL (3.4-5.0); Magnesium 2.3 mg/dL (1.6-2.6); Potassium 3.1 mmol/L (3.5-5.1)
[2022-01-02 07:44] LABS: BUN/Creatinine Ratio 13.3
[2022-01-02 07:46] LABS: Bilirubin, Total 0.3 mg/dL (0.2-1.0); Total Protein 5.9 g/dL (6.4-8.2)
[2022-01-02 08:00] VITALS: BP 127/67
[2022-01-02 09:00] VITALS: BP 127/67
[2022-01-02] MEDS: cefTRIAXone 1GM/50ML D5W 50 ML IV SCH (10:40)
[2022-01-02] MEDS: ENOXAPARIN SOD 40 MG/0.4 ML SYRINGE SC SCH (10:42)
[2022-01-02] MEDS: ALLOPURINOL 100 MG TAB PO SCH (10:42)
[2022-01-02] MEDS: ASPirin 81 mg TAB PO SCH (10:42)
[2022-01-02] MEDS: NEUTRA-PHOS TABLET PO SCH ×3 (10:43→18:56)
[2022-01-02] MEDS: AZITHROMYCIN 500MG/ 250ML 250 ML IV SCH (12:26)
[2022-01-02 12:52] VITALS: BP 145/73
[2022-01-02] MEDS ORDERED: POTASSIUM CHL 20 Meq TABLET PO ONE (15:15)
[2022-01-02 16:33] VITALS: BP 129/70
[2022-01-02] MEDS ORDERED: POTASSIUM PHOSPHATE 22 MEQ in SODIUM CHL 0.9% 100 ML IV ONE (17:45)
[2022-01-02] MEDS ORDERED: ERGOCALCIFEROL 50,000 UNIT(1.25MG) CAP PO SCH (17:45)
[2022-01-02] MEDS: ATORVASTATIN 20 MG TAB PO SCH (21:45)
[2022-01-02 22:00] VITALS: BP 151/76
[2022-01-02] MEDS: HYDROcodone-ACET 5/325MG TAB PO PRN ×2 (22:32→23:39)
[2022-01-03] MEDS: ACCU-CHEK COMFORT CURVE STRIP VI SCH ×4 (00:07→17:39)
[2022-01-03] MEDS: InsuLIN REG 1unit/0.01ml Soln (100units/ml) SC SCH ×4 (00:23→17:40)
[2022-01-03] MEDS: IPRATROPIUM BROM 0.5 MG/2.5ML INH SOL NEB SCH ×6 (02:25→23:12)
[2022-01-03] MEDS: ALBUTEROL SULF 2.5 MG/0.5ML(0.5%) NEB SOLN NEB SCH ×6 (02:25→23:12)
[2022-01-03 05:00] VITALS: BP 145/61
[2022-01-03 06:23] LABS: BUN/Creatinine Ratio 10.6; Calcium 7.9 mg/dL (8.5-10.1); Potassium 3.2 mmol/L (3.5-5.1)
[2022-01-03] MEDS: ALLOPURINOL 100 MG TAB PO SCH (08:48)
[2022-01-03] MEDS: AZITHROMYCIN 250 MG TAB PO SCH (08:48)
[2022-01-03] MEDS: NEUTRA-PHOS TABLET PO SCH ×3 (08:48→17:38)
[2022-01-03] MEDS: ASPirin 81 mg TAB PO SCH (08:48)
[2022-01-03] MEDS: cefTRIAXone 1GM/50ML D5W 50 ML IV SCH (08:48)
[2022-01-03] MEDS: ENOXAPARIN SOD 40 MG/0.4 ML SYRINGE SC SCH (08:49)
[2022-01-03 09:00] VITALS: BP 130/64
[2022-01-03] MEDS ORDERED: POTASSIUM CHL 20 Meq TABLET PO ONE (10:15)
[2022-01-03 13:00] VITALS: BP 154/70
[2022-01-03 17:00] VITALS: BP 142/66
[2022-01-03] MEDS ORDERED: GABAPENTIN 100 MG CAP PO ONE (17:15)
[2022-01-03] MEDS: hydrALAZINE HCL 20 MG/ML VL IV PRN (21:16)
[2022-01-03] MEDS: ATORVASTATIN 20 MG TAB PO SCH (21:16)
[2022-01-03 21:35] VITALS: BP 162/60
[2022-01-03] MEDS ORDERED: LOSA-69 PO (23:22)
[2022-01-03] MEDS ORDERED: HYDR25TA4 PO (23:22)
[2022-01-04] MEDS: LORazepam 0.5 MG TAB PO PRN (00:20)
[2022-01-04] MEDS: ACCU-CHEK COMFORT CURVE STRIP VI SCH ×3 (00:20→11:44)
[2022-01-04] MEDS: InsuLIN REG 1unit/0.01ml Soln (100units/ml) SC SCH ×3 (00:21→11:46)
[2022-01-04] MEDS: ALBUTEROL SULF 2.5 MG/0.5ML(0.5%) NEB SOLN NEB SCH ×4 (02:39→14:17)
[2022-01-04] MEDS: IPRATROPIUM BROM 0.5 MG/2.5ML INH SOL NEB SCH ×4 (02:39→14:17)
[2022-01-04 05:00] VITALS: BP 127/98
[2022-01-04] MEDS: NEUTRA-PHOS TABLET PO SCH ×2 (08:53→11:44)
[2022-01-04] MEDS: cefTRIAXone 1GM/50ML D5W 50 ML IV SCH (08:53)
[2022-01-04] MEDS: ASPirin 81 mg TAB PO SCH (08:53)
[2022-01-04] MEDS: ENOXAPARIN SOD 40 MG/0.4 ML SYRINGE SC SCH (08:54)
[2022-01-04] MEDS: AZITHROMYCIN 250 MG TAB PO SCH (08:54)
[2022-01-04] MEDS: ALLOPURINOL 100 MG TAB PO SCH (08:54)
[2022-01-04 09:00] VITALS: BP_SYST 153; BP_DIAS 54; BP_DIAS 63
[2022-01-04] MEDS: hydrALAZINE HCL 20 MG/ML VL IV PRN (10:23)
[2022-01-04 13:00] VITALS: BP 121/55
[2022-01-04] MEDS ORDERED: AZIT250T9 PO (13:44)
[2022-01-04] MEDS ORDERED: ALB5IS NEB (13:44)
[2022-01-04] MEDS ORDERED: ERGO1CAP23 PO (13:44)
[2022-01-04] MEDS ORDERED: BLOO1KIT60 XX (13:50)
[2022-01-04 14:42] VITALS: BP 153/54
== END 2022-01-04 15:00 | disposition home or self-care (01) | DRG 871 ==
LOC: EDBD 12:03 → ER 12:03 → OVERFLOW 15:41 → WEST WING 22:21
PROVIDERS: ADMIT Hospitalist; ATTEND Internal Medicine
DX: A41.9 Sepsis, unspecified organism (principal); E11.10 Type 2 diabetes mellitus with ketoacidosis without coma; J96.00 Acute respiratory failure, unspecified whether with hypoxia or hypercapnia; J18.0 Bronchopneumonia, unspecified organism; J98.11 Atelectasis; E11.40 Type 2 diabetes mellitus with diabetic neuropathy, unspecified; I10 Essential (primary) hypertension; Z20.822 Contact with and (suspected) exposure to COVID-19; E78.5 Hyperlipidemia, unspecified; M1A.9XX0 Chronic gout, unspecified, without tophus (tophi); E66.9 Obesity, unspecified; E11.65 Type 2 diabetes mellitus with hyperglycemia; E55.9 Vitamin D deficiency, unspecified; Z79.4 Long term (current) use of insulin; Z68.27 Body mass index [BMI] 27.0-27.9, adult; Z91.19 Patient's noncompliance with other medical treatment and regimen
CPT/HCPCS: 36415; 71045; 71250; 80048; 80053; 80061; 81001; 82010; 82306; 82550; 82728; 82962; 83036; 83615; 83690; 83735; 83880; 84100; 84443; 84484; 84550; 85025; 85049; 85379; 85610; 85652; 85730; 86141; 87040; 87086; 93005; 94640; 96361; 96365; 96375; 99291; C9113; G0378; J0696; J1815

== ENCOUNTER 2022-10-25 12:31 | Emergency (ER) | payer OTHER ==
[~2022-10-25] VITALS: Ht 160 cm; Wt 73.0 kg
[~2022-10-25 12:31] MED LIST changes: +ALB5IS NEB; +AZIT250T9 PO; +BLOO1KIT60 XX; +ERGO1CAP23 PO; +HYDR25TA4 PO; +LOSA-69 PO
[2022-10-25] MEDS ORDERED: INSULIN LISPRO (HUMAN) 100 UNITS/ML ML SC ONE (13:00)
[2022-10-25] MEDS ORDERED: ONDANSETRON ODT 4 MG TAB PO ONE (13:00)
[2022-10-25 13:29] LABS: Potassium 3.3 mmol/L (3.5-5.1)
[2022-10-25 13:40] LABS: Albumin 3.9 g/dL (3.4-5.0); BUN/Creatinine Ratio 17.7; Bilirubin, Total 0.6 mg/dL (0.2-1.0); Calcium 9.1 mg/dL (8.5-10.1); Total Protein 7.5 g/dL (6.4-8.2)
[2022-10-25 13:41] LABS: Urine Bacteria NONE SEEN /hpf (None Seen); Urine Blood Negative /uL (Negative); Urine Specific Gravity 1.027 (1.001-1.035); Urine WBC 18 /hpf (0 - 5)
[2022-10-25 13:43] LABS: Basophils # (auto) 0 10 ^3/uL (0-0.2); Basophils % (auto) 0.3 % (0.0-2.0); Eosinophils # (auto) 0 10 ^3/uL (0-0.8); Eosinophils % (auto) 0.5 % (0.0-7.0); Hemoglobin 15.1 g/dL (12.2-16.2); Lymphocytes % (auto) 10.9 % (10.0-50.0); Mean Corpuscular Hemoglobin 29.9 pg (28.0-32.0); Mean Corpuscular Hgb Conc. 34.3 g/dL (32.0-36.0); Mean Corpuscular Volume 87.2 fL (80.0-100.0); Monocytes # (auto) 0.5 10 ^3/uL (0-1.3); Monocytes % (auto) 5.9 % (0.0-12.0); Neutrophils # (auto) 7.4 10 ^3/uL (1.6-8.6); Neutrophils % (auto) 82.4 % (37.0-80.0); Nucleated Red Blood Cells % 0.2 %; Red Blood Cells 5.04 10^6/uL (4.0-5.20); Red Cell Distribution Width 12.7 % (11.8-14.3); White Blood Cell 8.9 10^3/uL (4.4-10.8)
[2022-10-25] MEDS ORDERED: SODIUM CHLORIDE 0.9% 1,000 ML IV ONE (14:45)
[2022-10-25] MEDS ORDERED: PHENAZOPYRIDINE HCL 100 MG TAB PO ONE (15:00)
[2022-10-25] MEDS ORDERED: NITROFURANTOIN 100 mg CAP PO ONE (15:00)
[2022-10-25] MEDS ORDERED: NITR-87 PO (17:18)
[2022-10-25] MEDS ORDERED: ONDA-144 PO (17:18)
[2022-10-25] MEDS ORDERED: PHEN-1044 PO (17:20)
[2022-10-25 17:47] VITALS: BP 175/83
== END 2022-10-25 17:48 | disposition home or self-care (01) ==
LOC: ER 12:31
DX: N39.0 Urinary tract infection, site not specified (principal); E11.65 Type 2 diabetes mellitus with hyperglycemia; J45.909 Unspecified asthma, uncomplicated; I10 Essential (primary) hypertension; Z79.899 Other long term (current) drug therapy; Z79.84 Long term (current) use of oral hypoglycemic drugs; Z98.890 Other specified postprocedural states
CPT/HCPCS: 36415; 80053; 81001; 82010; 82962; 85025; 93005; 96360; 96372; 99284; J1815; J7030; Q0162; 96361

== ENCOUNTER 2023-10-17 10:58 | Inpatient (IN) | payer OTHER ==
[~2023-10-17] VITALS: Ht 160 cm; Wt 70.7 kg
[~2023-10-17 10:58] MED LIST changes: +AZIT-43 PO; -AZIT250T9 PO; -LOSA-69 PO; +LOSA50TA46 PO; +NITR-87 PO; +ONDA-144 PO; +PHEN-1044 PO
[2023-10-17 12:05] LABS: Base Excess 1.1 mmol/L (-2.0-2.0)
[2023-10-17 12:14] LABS: Basophils # (auto) 0 10 ^3/uL (0-0.2); Eosinophils # (auto) 0.1 10 ^3/uL (0-0.8); Eosinophils % (auto) 0.7 % (0.0-7.0); Hemoglobin 13.9 g/dL (12.2-16.2); Lymphocytes # (auto) 0.8 10 ^3/uL (0.4-5.4); Monocytes # (auto) 0.4 10 ^3/uL (0-1.3)
[2023-10-17 12:16] LABS: Basophils % (auto) 0.2 % (0.0-2.0); Hematocrit 42.3 % (36.0-46.0); Lymphocytes % (auto) 10.4 % (10.0-50.0); Mean Corpuscular Hgb Conc. 32.9 g/dL (32.0-36.0); Monocytes % (auto) 4.4 % (0.0-12.0); Neutrophils # (auto) 6.8 10 ^3/uL (1.6-8.6); Neutrophils % (auto) 84.3 % (37.0-80.0); Red Blood Cells 5.16 10^6/uL (4.0-5.20); Red Cell Distribution Width 14.4 % (11.8-14.3)
[2023-10-17] MEDS: SODIUM CHLORIDE 0.9% 1,000 ML IV ONE (12:18)
[2023-10-17 12:27] LABS: Alanine Aminotransferase 34 U/L (7-40); Alkaline Phosphatase 99 U/L (46-116); Calcium 10.8 mg/dL (8.7-10.4); Carbon Dioxide 28 mmol/L (20-30); Chloride 91 mmol/L (98-107)
[2023-10-17 12:28] LABS: Albumin 4.6 g/dL (3.2-4.8); Anion Gap 8 (5-15); Aspartate Aminotransferase 22 U/L (13-40); BUN/Creatinine Ratio 11.4 (10.0-20.0); Bilirubin, Total 0.5 mg/dL (0.2-1.0); Blood Urea Nitrogen 20 mg/dL (9-23); Magnesium 1.9 mg/dL (1.6-2.6); Potassium 4.7 mmol/L (3.5-5.1); Sodium 127 mmol/L (136-145); Total Protein 7.8 g/dL (5.7-8.2)
[2023-10-17 12:31] LABS: Glucose 616 mg/dL (74-106)
[2023-10-17 12:39] LABS: Urine Bacteria FEW /hpf (None Seen); Urine Blood Negative /uL (Negative); Urine Clarity Clear (Clear); Urine Protein, UAD Negative (Negative); Urine Specific Gravity 1.024 (1.001-1.035); Urine Urobilinogen Normal (Negative); Urine WBC 2 /hpf (0 - 5); Urine pH 5.5 (5.0-8.0)
[2023-10-17 12:45] LABS: Urine Color Yellow (Yellow)
[2023-10-17] MEDS: InsuLIN REG 1unit/0.01ml Soln (100units/ml) IV ONE ×2 (13:15→16:51)
[2023-10-17] MEDS: SODIUM CHLORIDE 0.9% 1,000 ML IVB ONE (14:00)
[2023-10-17] MEDS ORDERED: DEXTROSE (50%) 50ML SYRG IV PRN (18:30)
[2023-10-17] MEDS: SODIUM CHLORIDE 0.9% 1,000 ML IV SCH (18:42)
[2023-10-17] MEDS ORDERED: ALBUTEROL SULF 2.5 MG/0.5ML(0.5%) NEB SOLN NEB PRN (18:45)
[2023-10-17] MEDS: ERGOCALCIFEROL 50,000 UNIT(1.25MG) CAP PO SCH (18:45)
[2023-10-17 18:48] VITALS: BP 144/75; PULSE 78; RESP 18; O2SAT 96
[2023-10-17] MEDS ORDERED: PHENAZOPYRIDINE HCL 100 MG TAB PO SCH (22:00)
[2023-10-17] MEDS: ACCU-CHEK COMFORT CURVE STRIP VI SCH (22:27)
[2023-10-17] MEDS: InsuLIN REG 1unit/0.01ml Soln (100units/ml) SC SCH (22:29)
[2023-10-17 23:15] VITALS: O2SAT 96
[2023-10-17 23:56] VITALS: PULSE 76; RESP 19; O2SAT 96
[2023-10-18] VITALS (9 sets, daily range): BP systolic 145–176; BP diastolic 63–91; PULSE 66–106; RESP 18–20; TEMP 97.4–97.8; O2SAT 95–99
[2023-10-18] MEDS: hydrALAZINE HCL 20 MG/ML VL IV PRN (00:40)
[2023-10-18] MEDS ORDERED: METF-370 PO (00:54)
[2023-10-18] MEDS: ACETAMINOPHEN 325 MG TAB PO PRN (06:02)
[2023-10-18] MEDS: InsuLIN REG 1unit/0.01ml Soln (100units/ml) SC SCH ×2 (06:06→23:44)
[2023-10-18 07:19] LABS: Alanine Aminotransferase 24 U/L (7-40); Albumin 3.8 g/dL (3.2-4.8); Alkaline Phosphatase 73 U/L (46-116); Anion Gap 5 (5-15); Aspartate Aminotransferase 15 U/L (13-40); BUN/Creatinine Ratio 14.6 (10.0-20.0); Blood Urea Nitrogen 18 mg/dL (9-23); Calcium 9.3 mg/dL (8.5-10.1); Carbon Dioxide 25 mmol/L (20-30); Chloride 104 mmol/L (98-107); Glucose 351 mg/dL (74-106); Potassium 3.5 mmol/L (3.5-5.1)
[2023-10-18 07:20] LABS: Bilirubin, Total 0.5 mg/dL (0.2-1.0); Total Protein 6.1 g/dL (5.7-8.2)
[2023-10-18 07:21] LABS: Basophils # (auto) 0 10 ^3/uL (0-0.2); Basophils % (auto) 0.4 % (0.0-2.0); Eosinophils # (auto) 0.1 10 ^3/uL (0-0.8); Eosinophils % (auto) 1.5 % (0.0-7.0); Hematocrit 35.8 % (36.0-46.0); Lymphocytes # (auto) 1.2 10 ^3/uL (0.4-5.4); Mean Corpuscular Hemoglobin 27.1 pg (28.0-32.0); Mean Corpuscular Hgb Conc. 33.4 g/dL (32.0-36.0); Mean Corpuscular Volume 81.2 fL (80.0-100.0); Monocytes # (auto) 0.5 10 ^3/uL (0-1.3); Monocytes % (auto) 7.5 % (0.0-12.0); Neutrophils # (auto) 4.8 10 ^3/uL (1.6-8.6); Neutrophils % (auto) 72.6 % (37.0-80.0); Nucleated Red Blood Cells % 0.1 %; Red Blood Cells 4.41 10^6/uL (4.0-5.20); Red Cell Distribution Width 14.5 % (11.8-14.3); Sodium 134 mmol/L (136-145); White Blood Cell 6.7 10^3/uL (4.4-10.8)
[2023-10-18] MEDS: hydroCHLOROthiazide 25 MG TAB PO SCH (10:19)
[2023-10-18] MEDS: LOSARTAN POTASSIUM 50 MG TAB PO SCH ×2 (10:37→16:00)
[2023-10-18] MEDS: ENOXAPARIN SOD 30 MG/0.3 ML SYRINGE SC SCH (10:38)
[2023-10-18] MEDS: IBUPROFEN 600 MG TAB PO ONE (22:04)
[2023-10-18] MEDS ORDERED: DEXTROSE (50%) 50ML SYRG IV PRN (22:15)
[2023-10-18] MEDS: ACCU-CHEK COMFORT CURVE STRIP VI SCH (23:44)
[2023-10-19] VITALS (10 sets, daily range): BP systolic 137–191; BP diastolic 72–84; PULSE 70–105; RESP 15–18; TEMP 97.4–98.3; O2SAT 98–99
[2023-10-19 06:05] LABS: Basophils # (auto) 0 10 ^3/uL (0-0.2); Basophils % (auto) 0.2 % (0.0-2.0); Eosinophils # (auto) 0 10 ^3/uL (0-0.8); Eosinophils % (auto) 0.5 % (0.0-7.0); Hematocrit 36.8 % (36.0-46.0); Hemoglobin 12.2 g/dL (12.2-16.2); Lymphocytes # (auto) 0.9 10 ^3/uL (0.4-5.4); Mean Corpuscular Hgb Conc. 33.1 g/dL (32.0-36.0); Mean Corpuscular Volume 81.8 fL (80.0-100.0); Monocytes # (auto) 0.7 10 ^3/uL (0-1.3); Monocytes % (auto) 7.4 % (0.0-12.0); Neutrophils # (auto) 7.4 10 ^3/uL (1.6-8.6); Neutrophils % (auto) 81.9 % (37.0-80.0); Red Blood Cells 4.49 10^6/uL (4.0-5.20); Red Cell Distribution Width 14.6 % (11.8-14.3)
[2023-10-19 06:10] LABS: Chloride 107 mmol/L (98-107); Potassium 3.2 mmol/L (3.5-5.1); Sodium 139 mmol/L (136-145)
[2023-10-19 06:11] LABS: Calcium 9.6 mg/dL (8.5-10.1)
[2023-10-19 06:12] LABS: Anion Gap 6 (5-15); Carbon Dioxide 26 mmol/L (20-30)
[2023-10-19 06:17] LABS: BUN/Creatinine Ratio 15.3 (10.0-20.0); Blood Urea Nitrogen 17 mg/dL (9-23); Glucose 95 mg/dL (74-106)
[2023-10-19] MEDS ORDERED: DEXTROSE (50%) 50ML SYRG IV PRN (15:00)
[2023-10-19] MEDS: POTASSIUM CHL 20 Meq TABLET PO ONE (15:00)
[2023-10-19] MEDS: IBUPROFEN 600 MG TAB PO PRN (16:06)
[2023-10-19] MEDS: InsuLIN REG 1unit/0.01ml Soln (100units/ml) SC SCH (17:00)
[2023-10-19] MEDS: ACCU-CHEK COMFORT CURVE STRIP VI SCH (17:00)
[2023-10-19] MEDS: metFORMIN HYDROCHLORIDE 500 MG TAB PO SCH (17:45)
[2023-10-19] MEDS ORDERED: GLIM4TAB42 PO (18:02)
[2023-10-19] MEDS ORDERED: ESCI5TAB PO (18:02)
[2023-10-19] MEDS ORDERED: TRAZ-227 PO (18:02)
[2023-10-19] MEDS ORDERED: PIOG1TAB37 PO (18:02)
[2023-10-19] MEDS ORDERED: VALS160T6 PO (18:02)
[2023-10-19] MEDS ORDERED: ROSU5TAB5 PO (18:02)
[2023-10-20] VITALS (11 sets, daily range): BP systolic 117–203; BP diastolic 54–81; PULSE 72–103; RESP 16–19; TEMP 97.3–98.4; O2SAT 94–100
[2023-10-20] MEDS: GLIMEPIRIDE 2 MG TAB PO ONE (11:42)
[2023-10-20] MEDS: LORazepam 0.5 MG TAB PO ONE (11:42)
[2023-10-20] MEDS: PIOGLITAZONE HYDROCHLORIDE 30 MG TAB PO ONE (11:42)
[2023-10-20] MEDS: amLODIPine BESYLATE 5 MG TAB PO ONE (11:43)
[2023-10-21 05:00] VITALS: BP 122/68; PULSE 77; RESP 16; TEMP 97.9; O2SAT 98
[2023-10-21] MEDS: GLIMEPIRIDE 2 MG TAB PO SCH (06:24)
[2023-10-21 07:20] VITALS: O2SAT 98
[2023-10-21 08:20] VITALS: BP 146/78; PULSE 88; RESP 20; TEMP 97.3
[2023-10-21 09:00] VITALS: BP 146/78; PULSE 88; RESP 20; TEMP 97.3; O2SAT 97
[2023-10-21] MEDS: amLODIPine BESYLATE 5 MG TAB PO SCH (09:55)
[2023-10-21] MEDS: PIOGLITAZONE HYDROCHLORIDE 30 MG TAB PO SCH (10:14)
[2023-10-21] MEDS ORDERED: GLIM2TAB94 PO (11:31)
[2023-10-21] MEDS ORDERED: AML5T PO (11:31)
[2023-10-21] MEDS ORDERED: PIO30T PO (11:31)
[2023-10-21] MEDS ORDERED: METF-370 PO (11:31)
[2023-10-21 13:43] VITALS: BP 125/79; PULSE 93; RESP 20; TEMP 97.3; O2SAT 99
== END 2023-10-21 14:50 | disposition home or self-care (01) | DRG 639 ==
LOC: ER 10:58 → TELE-EAST 18:28 → TELE 18:28 → TELE-EAST 23:45 → EAST 10-19 18:37
PROVIDERS: ADMIT Nurse Practitioner Family; ATTEND Internal Medicine
DX: E11.65 Type 2 diabetes mellitus with hyperglycemia (principal); J45.909 Unspecified asthma, uncomplicated; I10 Essential (primary) hypertension; N28.9 Disorder of kidney and ureter, unspecified; Z96.653 Presence of artificial knee joint, bilateral; E11.21 Type 2 diabetes mellitus with diabetic nephropathy; E87.6 Hypokalemia; Z79.84 Long term (current) use of oral hypoglycemic drugs; Z79.899 Other long term (current) drug therapy; Z90.710 Acquired absence of both cervix and uterus; Z91.199 Patient's noncompliance with other medical treatment and regimen due to unspecified reason
CPT/HCPCS: 36415; 36600; 71046; 80048; 80053; 81001; 82010; 82805; 82962; 83036; 83735; 83880; 83930; 84484; 85025; 93005; G0378; J1815